=== PATIENT | male | born 1970 | race African-American/Black ===

== ENCOUNTER 2023-06-03 02:39 | Emergency (ER) | payer OTHER ==
[~2023-06-03] VITALS: Ht 185.4 cm; Wt 130.8 kg
[2023-06-03 02:44] VITALS: O2SAT 100
[2023-06-03 05:08] VITALS: TEMP 98.3
[2023-06-03] MEDS ORDERED: FLUORESCEIN SODIUM 1MG/STRIP RIGHTEYE ONE (05:30)
[2023-06-03] MEDS ORDERED: TETRACAINE 0.5% OPHTH DROPS 4ML RIGHTEYE ONE (05:30)
[2023-06-03] MEDS ORDERED: TETRACAINE 0.5% OPHTH DROPS 4ML RIGHTEYE NR (05:45)
[2023-06-03] MEDS ORDERED: FLUORESCEIN SODIUM 1MG/STRIP RIGHTEYE NR (05:45)
[2023-06-03] MEDS ORDERED: OCUFLX RIGHTEYE (05:58)
[2023-06-03 06:28] VITALS: BP 136/78; PULSE 66; RESP 18
== END 2023-06-03 06:30 | disposition home or self-care (01) ==
LOC: ER 03:04
DX: S05.01XA Injury of conjunctiva and corneal abrasion without foreign body, right eye, initial encounter (principal); X58.XXXA Exposure to other specified factors, initial encounter; Y93.89 Activity, other specified; Y92.89 Other specified places as the place of occurrence of the external cause; Y99.8 Other external cause status
CPT/HCPCS: 99283; Z7610